=== PATIENT | female | born 1995 | race Caucasian/White ===

== ENCOUNTER → 2024-08-25 12:33 | Outpatient (REF) | payer OTHER, SELFPAY | LOC: RAD 12:33 | PROVIDERS: ATTENDING PHYSICIAN Psychiatry & Neurology Neurology; FAMILY PHYSICIAN Family Medicine | DX: M54.14 Radiculopathy, thoracic region (principal); M54.6 Pain in thoracic spine; M54.50 Low back pain, unspecified; M54.17 Radiculopathy, lumbosacral region; M54.2 Cervicalgia; M54.12 Radiculopathy, cervical region | CPT/HCPCS: 72040; 72072; 72110 ==